=== PATIENT | male | born 1990 | race African-American/Black ===

== ENCOUNTER 2019-07-16 05:02 | Day surgery (SDC) | payer OTHER ==
[~2019-07-16] VITALS: Ht 165.1 cm; Wt 62.7 kg
[2019-07-16 07:04] VITALS: BP 118/80; Ht 165.1 cm; Wt 62.7 kg
--- NOTE | 2019-07-16 07:43 | NUR ---
0700 A REQUEST FOR BEHAVIORAL HEALTH CONSULT SUBMITTED TO NURSING ANALYSIS ENGINEER.
--- NOTE | 2019-07-16 08:37 | NUR ---
0803 PT HAS NOT HAD HIS VISIT FROM BEHAVIORIAL HEALTH CONSULT. RESUBMITTED THE REQUEST TO [facility] [employer].
--- NOTE | 2019-07-16 09:28 | NUR ---
DR VELAZCO NOTIFIED AND REVIEWED PT'S BEHAVIOR AND ASSESSMENT RESULTS. PT IS A LOW RISK. RESOURCES GIVEN AND HE VERBALIZES UNDERSTANDING.
--- NOTE | 2019-07-16 15:11 | NUR ---
1134 IV DC'D. CATHETER TIP INTACT. NO BLEEDING AT SITE. BANDAID APPLIED. PT HAS MET DISCHARGE CRITERIA. GUARDS ARE WAITING FOR A VAN TO ARRIVE TO TRANSPORT PT BACK TO [facility].
--- NOTE | 2019-07-18 17:21 | HP ---
PATIENT: MARILUZ LUTZ MEDICAL RECORD: [id number] ACCOUNT: [id number] LOCATION:[facility] : 89 ADMISSION DATE: 07/16/19 PCP: No PCP HISTORY AND PHYSICAL EXAMINATION CHIEF COMPLAINT: Fecal occult blood positivity. The patient has had 2 of 3 tests for fecal occult blood that have came back positive. He said he has had hematochezia as well as melena as well. Some anal burning. The patient is a poor historian. SOCIAL HISTORY: Former smoker, quit 2 years ago, used to use marijuana as well. PAST MEDICAL AND SURGICAL HISTORY: Seizure disorder, non-insulin dependent diabetes mellitus, cirrhosis. HOME MEDICATIONS: Please see the nursing list. ALLERGIES: Please see the nursing list. REVIEW OF SYSTEMS: Negative for renal disease or thyroid problems. PHYSICAL EXAMINATION: GENERAL: The patient does not appear acutely ill. He does appear chronically ill. VITAL SIGNS: Reviewed. EARS: External ears appear normal. PULMONARY: Nonlabored. NEUROLOGIC: Baseline tremor, which is a coarse tremor. IMPRESSION: Fecal occult blood positivity. PLAN: Colonoscopy. TRANSINT:[id number] Voice Confirmation ID: [id number] DOCUMENT ID: [id number] YOSVANY DE LEON MD at 1721 CC: RICKY MENDEZ MD [id number] DICTATION DATE: 07/16/19 1030 TRANSACTION COORDINATOR: 07/16/19 1050 [facility] 07/16/19 [facility] [address] [place] [address]
--- NOTE | 2019-07-18 17:21 | OP ---
PATIENT NAME: MARILUZ LUTZ MEDICAL RECORD: [id number] :89 LOCATION:D.OPS ADMISSION DATE: SURGEON: BLAYNE DE LEON MD DATE OF OPERATION: 07/16/2019 PREOPERATIVE DIAGNOSES: 1. Fecal occult blood positivity, 2 out of 3. 2. Melena. 3. Hematochezia. POSTOPERATIVE DIAGNOSES: 1. Fecal occult blood positivity, 2 out of 3. 2. Melena. 3. Hematochezia. PROCEDURES: Total colonoscopy to cecum. SURGEON: Blayne De Leon MD SPORTS EQUIPMENT RACKER: None. BLOOD LOSS: Minimal. ANESTHESIA: IV sedation. COMPLICATIONS: None. The risks, possible complications and alternatives to the procedure were explained to the patient. A consent form was signed. ENDOSCOPIC COURSE: The patient was conveyed to the endoscopy suite electively on 07/16/2019. IV sedation was induced by the anesthesia staff. The patient was placed in the [place] position. A digital rectal examination was performed. The prostate was of normal size and was symmetric and without nodules. A colonoscope was inserted through the anus. It was easily advanced to the cecum. The prep was excellent. I slowly withdrew the endoscope. I dragged the folds. The pullback was greater than 15-minute pullback. I utilized normal imaging as well as narrow band imaging. No polyps or masses were noted. No source of bleeding was noted. There were no diverticula. A retroflexed view was obtained in the rectum. I then unretroflexed the scope and removed it under direct vision. The patient is going to be dismissed back to the care home. We are going to schedule him for an EGD as no source of occult bleeding was identified. TRANSINT:[id number] Voice Confirmation ID: [id number] DOCUMENT ID: [id number] OPERATIVE REPORT [id number] LUTZMARILUZ BLAYNE DE LEON MD at 1721 CC: RICKY MENDEZ MD [id number] DICTATION DATE: 07/16/19 1100 EXPORT DOCUMENTS CLERK: 07/16/19 1118 [facility] 07/16/19 [facility] [address] [place] [id number]
== END 2019-07-16 12:34 | disposition home or self-care (01) ==
LOC: D.OPS 05:02
PROVIDERS: ATTEND Surgery
DX: K92.1 Melena (principal); G40.909 Epilepsy, unspecified, not intractable, without status epilepticus; E11.9 Type 2 diabetes mellitus without complications; K74.60 Unspecified cirrhosis of liver

== ENCOUNTER → 2019-12-18 08:59 | Outpatient (CLI) | payer OTHER ==
[2019-07-16 07:04] VITALS: BMI 23.0
[~2019-12-18 08:59] MED LIST: BENZTROPINE MESY2 MG; DILANTIN100 MG; DOK100 MG PO; KEPPRA250 MG PO; LISINOPRIL5 MG PO; NAPROXEN SODIU220 M1 PO; NORVASC10 MG; PROLIXIN DEC25 MG/ML IM
== END | disposition home or self-care (01) ==
LOC: D.LAB 08:59
PROVIDERS: ATTEND Surgery
DX: Z11.59 Encounter for screening for other viral diseases (principal)

== ENCOUNTER → 2019-12-20 05:17 | Day surgery (SDC) | payer OTHER ==
[2019-07-16 07:04] VITALS: BMI 23.0
== END | disposition home or self-care (01) ==
LOC: D.OPS 10-22 08:00
PROVIDERS: ATTEND Surgery
DX: R19.5 Other fecal abnormalities (principal)

== ENCOUNTER 2020-02-18 07:20 | Day surgery (SDC) | payer OTHER ==
[~2020-02-18] VITALS: Ht 165.1 cm; Wt 62.3 kg
[2020-02-18 09:22] VITALS: BP 125/73; Ht 165.1 cm; Wt 62.3 kg
--- NOTE | 2020-02-18 09:30 | NUR ---
POSITIVE FOR SUICIDE SCREENING, 2 GUARDS AT BEDSIDE NO FURTHER ASSESSMENT NEEDED DUE TO ALREADY BEING MONITORED.
[2020-02-18 09:38] LABS: CALC OSMOLALITY 270 mosm/kg (275-300); CALCIUM 9.5 mg/dL (8.5-10.1); CARBON DIOXIDE 27.3 mmol/L (21.0-32.0); CHLORIDE - SERUM 103 mmol/L (98-107); CREATININE - SERUM 0.8 mg/dL (0.6-1.3); GLUCOSE 86 mg/dL (74-106); HEMATOCRIT 37.9 % (42.0-54.0); HEMOGLOBIN 12.1 g/dL (13.5-17.5); MCH 26.2 pg (26.0-34.0); MCHC 31.9 g/dL (31.0-37.0); MEAN PLATELET VOLUME 9.8 fL (7.4-10.4); PLATELET COUNT 261 10x3/uL (130-400); RBC 4.62 10x6/uL (4.20-6.10); RDW 14.1 % (11.5-14.5); SODIUM 137 mmol/L (136-145); UREA NITROGEN 8 mg/dL (7-18); WBC 4.8 10x3/uL (4.8-10.8); eGFR NON AFRICAN AMERICAN > 90 mL/min (90-120)
[2020-02-18 12:35] LABS: ANISOCYTOSIS OCC; EOSINOPHILS 2 % (0-7); LYMPHOCYTES 49 % (15-50); MONOCYTES 8 % (2-11); NEUTROPHILS 41 % (40-80); PLATELET ESTIMATE NORMAL
--- NOTE | 2020-02-18 12:35 | NUR ---
0087 DR. HALEY HARO
--- NOTE | 2020-02-18 13:19 | NUR ---
1509 ALL DC CRITERIA MET. ALL RECORDS GIVEN TO [facility]AR[facility]. AMBULATED OUT WITH GUARDS. NO S/S OF ACUTE DISTRESS NOTED.
--- NOTE | 2020-02-19 17:53 | OP ---
PATIENT NAME: MARILUZ LUTZ MEDICAL RECORD: [id number] :89 LOCATION:D.OPS ADMISSION DATE: SURGEON: YOSVANY DE LEON MD DATE OF OPERATION: 02/18/2020 PREOPERATIVE DIAGNOSIS: Fecal occult blood positivity with a negative colonoscopy for a source of bleeding. POSTOPERATIVE DIAGNOSES: 1. Fecal occult blood positivity with a negative colonoscopy for a source of bleeding. 2. Inlet patch. 3. Glandular material at the esophagogastric junction, rule out Lal's. 4. Linear gastritis, which was nodular and very likely could be the source of the patient's fecal occult blood positivity. 5. Normal duodenum. 6. Hiatal hernia. PROCEDURES: 1. Esophagogastroduodenoscopy with antral and distal esophageal biopsies. 2. Cold endoscopic biopsies of the area of linear nodular gastritis and then cautery ablation of that area of gastritis. SURGEON: Yosvany De Leon MD DRY KILN WORKER: None. BLOOD LOSS: Minimal. ANESTHESIA: IV sedation. COMPLICATIONS: None. ENDOSCOPIC COURSE: The patient was conveyed to endoscopy suite electively on 02/18/2020. IV sedation was induced by the anesthesia staff. A bite-block was inserted. A gastroscope was inserted into the mouth. It was advanced easily into the hypopharynx. The esophagus was easily intubated as were the stomach and duodenum. Upon withdrawal, retroflexed and angulus views were obtained. Cold endoscopic biopsies were obtained in the antrum to rule out H. pylori. With retroflexion, there was an area of linear gastritis and initially I thought this was due to an abrasion from the gastroscope. However, I had not gone near this area and also the margins of this area of gastritis were pretty sharp and this was unlike what we would see with an abrasion from the scope. Cold endoscopic biopsies were obtained and then utilizing the hot biopsy device I cauterized the rest of this gastritis. I then withdrew into the distal esophagus. Distal esophageal biopsies were obtained to rule out Lal's esophagus. The endoscope was then withdrawn under direct vision. My recommendation is that the patient be placed on H2 edson or PPI therapy for 6 weeks. There is no need for him to follow up with me in the office unless he develops complication related to this operative procedure. TRANSINT:[id number] Voice Confirmation ID: [id number] DOCUMENT ID: [id number] OPERATIVE REPORT [id number] NELDAYOSVANY MANCIA MD at 1753 CC: RICKY MENDEZ MD [id number] DICTATION DATE: 02/18/20 1233 [place] [place] GUIDE: 02/18/20 1313 [facility] 02/18/20 [facility] [address] [place] [address]
--- NOTE | 2020-02-20 18:33 | HP ---
PATIENT: MARILUZ LUTZ MEDICAL RECORD: [id number] ACCOUNT: [id number] LOCATION:[facility] : 89 ADMISSION DATE: 02/18/20 PCP: RICKY MENDEZ MD HISTORY AND PHYSICAL EXAMINATION CHIEF COMPLAINT: Fecal occult blood positivity. The patient had a negative colonoscopy. He is here to undergo upper endoscopy to search for a source of bleeding. PAST MEDICAL AND SURGICAL HISTORY: Gastroesophageal reflux, cirrhosis, diabetes, schizophrenia, bipolar disorder, seizure disorder, history of PDA when he was a child, bronchitis, hypertension. SOCIAL HISTORY: Former smoker. HOME MEDICINES: No blood thinners. ALLERGIES: ASPIRIN, WELL CHLORPROMAZINE. PHYSICAL EXAMINATION: GENERAL: The patient does not appear acutely ill. He does not appear chronically ill. VITAL SIGNS: Reviewed. EARS: External ears appear normal. EYES: Extraocular movements are intact. NECK: Trachea is midline. CHEST: No intercostal retractions. PULMONARY: Nonlabored. IMPRESSION: Fecal occult blood positivity. PLAN: Will be EGD. TRANSINT:[id number] Voice Confirmation ID: [id number] DOCUMENT ID: [id number] YOSVANY DE LEON MD at 1833 CC: RICKY MENDEZ MD [id number] DICTATION DATE: 02/18/20 1146 [facility]: 02/18/20 1200 [facility] 02/18/20 [id number] [place] [address]
== END 2020-02-18 13:09 | disposition home or self-care (01) ==
LOC: D.OPS 07:20
PROVIDERS: Anesthesiology; ATTEND Surgery
DX: R19.5 Other fecal abnormalities (principal); K21.9 Gastro-esophageal reflux disease without esophagitis; K74.60 Unspecified cirrhosis of liver; E11.9 Type 2 diabetes mellitus without complications; F20.9 Schizophrenia, unspecified; I10 Essential (primary) hypertension; K29.60 Other gastritis without bleeding; K44.9 Diaphragmatic hernia without obstruction or gangrene